=== PATIENT | male | born 1985 | race Caucasian/White ===

== ENCOUNTER 2019-04-28 08:33 | Inpatient (IN) ==
[2019-04-28] MEDS ORDERED: OXYCODONE PO PRN (16:34)
[2019-04-28 16:35] LABS: Basophils # 0.1 K/mcL (0.0-0.2); Basophils % 1.1 %; Eosinophils # 0.5 K/mcL (0.0-0.6); Hematocrit 32.5 % (37.5-50.1); Hemoglobin 10.1 g/dL (12.9-16.9); Immature Granulocytes % 0.3 % (0-4); Lymphocytes # 3.8 K/mcL (0.6-4.6); Lymphocytes % 32.7 %; Mean Corpuscular HGB Conc 31.1 g/dL (31.6-35.5); Mean Corpuscular Hemoglobin 28.7 pg (28.0-33.3); Mean Corpuscular Volume 92.3 fL (83.0-100.0); Mean Platelet Volume 9.8 fL (9.4-12.4); Monocytes # 0.9 K/mcL (0.0-1.3); Monocytes % 7.8 %; Neutrophils # 6.2 K/mcL (1.6-8.9); Platelet Count 1202 K/mcL (140-400); Red Blood Count 3.52 M/mcL (4.19-5.50); Red Cell Distribution Width 14.6 % (11.5-14.5); Segmented Neutrophils % 54.1 %; White Blood Count 11.5 K/mcL (4.3-11.1)
[2019-04-28] MEDS ORDERED: *HR* OxyCODONE Immed Rel 5 MG TABLET PO PRN (16:38)
[2019-04-28] MEDS ORDERED: *HR* OxyCODONE Immed Rel 15 MG TABLET PO PRN (16:39)
[2019-04-28] MEDS: Methocarbamol 500 MG TABLET PO SCH ×2 (17:41→20:58)
[2019-04-28] MEDS: Gabapentin 300 MG CAPSULE PO SCH (20:57)
[2019-04-28] MEDS: *HR* OxyCODONE Immed Rel 15 MG TABLET PO PRN (20:57)
[2019-04-28] MEDS: QUEtiapine Fumarate 25 MG TABLET PO PRN (20:57)
[2019-04-28] MEDS: Melatonin 3 MG TABLET PO PRN (20:57)
[2019-04-28] MEDS: Ciprofloxacin/Dex *EAR* Susp 7.5 ML BOTTLE LEFT EAR SCH (22:44)
[2019-04-29] MEDS: *HR* OxyCODONE Immed Rel 15 MG TABLET PO PRN ×3 (00:56→22:42)
[2019-04-29] MEDS: *HR* Enoxaparin 40 MG/0.4 ML SYRINGE SQ SCH (05:16)
[2019-04-29 06:16] LABS: Basophils # 0.1 K/mcL (0.0-0.2); Basophils % 1.2 %; Eosinophils # 0.5 K/mcL (0.0-0.6); Hematocrit 30.2 % (37.5-50.1); Hemoglobin 9.4 g/dL (12.9-16.9); Immature Granulocytes % 0.4 % (0-4); Lymphocytes # 2.7 K/mcL (0.6-4.6); Lymphocytes % 25.1 %; Mean Corpuscular HGB Conc 31.1 g/dL (31.6-35.5); Mean Corpuscular Hemoglobin 28.6 pg (28.0-33.3); Mean Corpuscular Volume 91.8 fL (83.0-100.0); Mean Platelet Volume 10.6 fL (9.4-12.4); Neutrophils # 6.4 K/mcL (1.6-8.9); Nucleated Red Blood Cells 0.2 /100 WBC (0); Platelet Count 993 K/mcL (140-400); Red Blood Count 3.29 M/mcL (4.19-5.50); Red Cell Distribution Width 14.3 % (11.5-14.5); Segmented Neutrophils % 59.3 %; White Blood Count 10.7 K/mcL (4.3-11.1)
[2019-04-29 06:36] LABS: BUN/Creatinine Ratio 27 (6-26); Blood Urea Nitrogen 13 mg/dL (6-20); Calcium 9.4 mg/dL (8.6-10.3); Carbon Dioxide 26 mEq/L (23-29); Chloride 99 mEq/L (98-107); Glucose 124 mg/dL (70-105); Osmolality,Calculated 278 (280-300); Potassium 3.9 mEq/L (3.5-5.1); Sodium 133 mEq/L (136-145); eGFR For African Americans > 60 (> 60); eGFR For Non-African Americans > 60 (> 60)
[2019-04-29 06:38] LABS: Macrocytosis Present (Not Present); Platelet Estimate Marked Increase (Normal)
[2019-04-29 06:39] LABS: Microcytosis Present (Not Present)
[2019-04-29 06:41] LABS: Spherocytes 1+ (Not Present)
[2019-04-29] MEDS: Multivit/Ca/Min/Fe/FA 1 TAB TABLET PO SCH (08:58)
[2019-04-29] MEDS: Methocarbamol 500 MG TABLET PO SCH ×4 (08:58→22:35)
[2019-04-29] MEDS: Gabapentin 300 MG CAPSULE PO SCH ×3 (08:58→22:35)
[2019-04-29] MEDS: Sennosides/Docusate Sodium TABLET PO SCH (08:58)
[2019-04-29] MEDS: *HR* OxyCODONE Immed Rel 5 MG TABLET PO PRN ×3 (09:33→18:41)
[2019-04-29] MEDS: Ciprofloxacin/Dex *EAR* Susp 7.5 ML BOTTLE LEFT EAR SCH ×2 (09:33→22:35)
[2019-04-29] MEDS: Melatonin 3 MG TABLET PO PRN (22:36)
[2019-04-29] MEDS: QUEtiapine Fumarate 25 MG TABLET PO PRN (22:36)
[2019-04-30] MEDS: *HR* OxyCODONE Immed Rel 15 MG TABLET PO PRN ×5 (02:43→20:19)
[2019-04-30 05:47] LABS: Hematocrit 27.6 % (37.5-50.1); Hemoglobin 8.5 g/dL (12.9-16.9); Mean Corpuscular HGB Conc 30.8 g/dL (31.6-35.5); Mean Corpuscular Hemoglobin 28.6 pg (28.0-33.3); Mean Corpuscular Volume 92.9 fL (83.0-100.0); Mean Platelet Volume 9.3 fL (9.4-12.4); Platelet Count 1213 K/mcL (140-400); Red Blood Count 2.97 M/mcL (4.19-5.50); Red Cell Distribution Width 14.5 % (11.5-14.5); White Blood Count 9.6 K/mcL (4.3-11.1)
[2019-04-30 06:15] LABS: Alanine Aminotransferase 40 Units/L (7-52); Albumin 3.5 g/dL (3.5-5.7); Albumin/Globulin Ratio 0.9 (1.1-2.2); Alkaline Phosphatase 145 Units/L (34-104); Aspartate Amino Transferase 23 Units/L (13-39); BUN/Creatinine Ratio 33 (6-26); Bilirubin,Total 0.6 mg/dL (0.3-1.0); Blood Urea Nitrogen 15 mg/dL (6-20); Calcium 8.9 mg/dL (8.6-10.3); Carbon Dioxide 29 mEq/L (23-29); Chloride 101 mEq/L (98-107); Globulin 3.9 g/dL (2.4-3.5); Glucose 104 mg/dL (70-105); Magnesium 1.9 mg/dL (1.6-2.6); Osmolality,Calculated 283 (280-300); Potassium 3.8 mEq/L (3.5-5.1); Sodium 136 mEq/L (136-145); Total Protein 7.4 g/dL (6.4-8.9); eGFR For African Americans > 60 (> 60); eGFR For Non-African Americans > 60 (> 60)
[2019-04-30] MEDS: *HR* Enoxaparin 40 MG/0.4 ML SYRINGE SQ SCH (06:43)
[2019-04-30] MEDS: Gabapentin 300 MG CAPSULE PO SCH ×3 (09:30→20:19)
[2019-04-30] MEDS: Multivit/Ca/Min/Fe/FA 1 TAB TABLET PO SCH (09:30)
[2019-04-30] MEDS: Sennosides/Docusate Sodium TABLET PO SCH (09:30)
[2019-04-30] MEDS: Methocarbamol 500 MG TABLET PO SCH ×4 (09:30→20:19)
[2019-04-30] MEDS: Ciprofloxacin/Dex *EAR* Susp 7.5 ML BOTTLE LEFT EAR SCH ×2 (11:00→20:20)
[2019-04-30] MEDS: QUEtiapine Fumarate 25 MG TABLET PO PRN (20:19)
[2019-04-30] MEDS: Melatonin 3 MG TABLET PO PRN (20:19)
[2019-05-01] MEDS: *HR* OxyCODONE Immed Rel 15 MG TABLET PO PRN ×6 (00:22→20:50)
[2019-05-01] MEDS: *HR* Enoxaparin 40 MG/0.4 ML SYRINGE SQ SCH (04:23)
[2019-05-01 06:11] LABS: Basophils # 0.2 K/mcL (0.0-0.2); Basophils % 1.9 %; Eosinophils # 0.8 K/mcL (0.0-0.6); Eosinophils % 7.5 %; Hematocrit 28.3 % (37.5-50.1); Hemoglobin 8.8 g/dL (12.9-16.9); Immature Granulocytes % 0.4 % (0-4); Lymphocytes # 3.1 K/mcL (0.6-4.6); Lymphocytes % 29.9 %; Mean Corpuscular HGB Conc 31.1 g/dL (31.6-35.5); Mean Corpuscular Hemoglobin 29.1 pg (28.0-33.3); Mean Corpuscular Volume 93.7 fL (83.0-100.0); Mean Platelet Volume 9.1 fL (9.4-12.4); Monocytes # 1.2 K/mcL (0.0-1.3); Monocytes % 11.5 %; Neutrophils # 5.1 K/mcL (1.6-8.9); Platelet Count 1234 K/mcL (140-400); Red Blood Count 3.02 M/mcL (4.19-5.50); Red Cell Distribution Width 14.7 % (11.5-14.5); Segmented Neutrophils % 48.8 %; White Blood Count 10.5 K/mcL (4.3-11.1)
[2019-05-01] MEDS: Gabapentin 300 MG CAPSULE PO SCH ×3 (08:15→20:51)
[2019-05-01] MEDS: Multivit/Ca/Min/Fe/FA 1 TAB TABLET PO SCH (08:15)
[2019-05-01] MEDS: Ciprofloxacin/Dex *EAR* Susp 7.5 ML BOTTLE LEFT EAR SCH ×2 (08:16→20:51)
[2019-05-01] MEDS: Sennosides/Docusate Sodium TABLET PO SCH (08:16)
[2019-05-01] MEDS: Methocarbamol 500 MG TABLET PO SCH ×4 (08:16→20:51)
[2019-05-01] MEDS: QUEtiapine Fumarate 25 MG TABLET PO PRN (20:51)
[2019-05-01] MEDS: Melatonin 3 MG TABLET PO PRN (20:51)
[2019-05-02] MEDS: *HR* OxyCODONE Immed Rel 15 MG TABLET PO PRN ×6 (01:13→22:39)
[2019-05-02] MEDS: *HR* Enoxaparin 40 MG/0.4 ML SYRINGE SQ SCH (05:28)
[2019-05-02 05:41] LABS: Basophils # 0.2 K/mcL (0.0-0.2); Eosinophils # 0.8 K/mcL (0.0-0.6); Eosinophils % 8.4 %; Hematocrit 31.2 % (37.5-50.1); Hemoglobin 9.5 g/dL (12.9-16.9); Immature Granulocytes % 0.3 % (0-4); Lymphocytes # 2.5 K/mcL (0.6-4.6); Lymphocytes % 24.8 %; Mean Corpuscular HGB Conc 30.4 g/dL (31.6-35.5); Mean Corpuscular Volume 95.1 fL (83.0-100.0); Mean Platelet Volume 9.2 fL (9.4-12.4); Monocytes # 1.1 K/mcL (0.0-1.3); Monocytes % 11.4 %; Neutrophils # 5.3 K/mcL (1.6-8.9); Platelet Count 1238 K/mcL (140-400); Red Blood Count 3.28 M/mcL (4.19-5.50); Red Cell Distribution Width 15.4 % (11.5-14.5); Segmented Neutrophils % 53.1 %
[2019-05-02 06:00] LABS: BUN/Creatinine Ratio 27 (6-26); Blood Urea Nitrogen 14 mg/dL (6-20); Calcium 9.3 mg/dL (8.6-10.3); Carbon Dioxide 32 mEq/L (23-29); Chloride 101 mEq/L (98-107); Glucose 98 mg/dL (70-105); Osmolality,Calculated 284 (280-300); Potassium 3.9 mEq/L (3.5-5.1); Sodium 137 mEq/L (136-145); eGFR For African Americans > 60 (> 60); eGFR For Non-African Americans > 60 (> 60)
[2019-05-02] MEDS: Ciprofloxacin/Dex *EAR* Susp 7.5 ML BOTTLE LEFT EAR SCH ×2 (08:37→20:52)
[2019-05-02] MEDS: Gabapentin 300 MG CAPSULE PO SCH ×3 (08:38→20:51)
[2019-05-02] MEDS: Methocarbamol 500 MG TABLET PO SCH ×4 (08:38→20:51)
[2019-05-02] MEDS: Sennosides/Docusate Sodium TABLET PO SCH (08:38)
[2019-05-02] MEDS: Multivit/Ca/Min/Fe/FA 1 TAB TABLET PO SCH (08:38)
[2019-05-02] MEDS: QUEtiapine Fumarate 25 MG TABLET PO PRN (20:51)
[2019-05-02] MEDS: Melatonin 3 MG TABLET PO PRN (20:51)
[2019-05-03] MEDS: *HR* OxyCODONE Immed Rel 15 MG TABLET PO PRN ×5 (02:38→21:00)
[2019-05-03] MEDS: *HR* Enoxaparin 40 MG/0.4 ML SYRINGE SQ SCH (06:41)
[2019-05-03] MEDS: Multivit/Ca/Min/Fe/FA 1 TAB TABLET PO SCH (10:09)
[2019-05-03] MEDS: Gabapentin 300 MG CAPSULE PO SCH ×3 (10:09→20:59)
[2019-05-03] MEDS: Methocarbamol 500 MG TABLET PO SCH ×4 (10:09→20:59)
[2019-05-03] MEDS: Sennosides/Docusate Sodium TABLET PO SCH (10:09)
[2019-05-03] MEDS: Ciprofloxacin/Dex *EAR* Susp 7.5 ML BOTTLE LEFT EAR SCH ×2 (11:23→21:00)
[2019-05-03] MEDS: QUEtiapine Fumarate 25 MG TABLET PO PRN (21:00)
[2019-05-03] MEDS: Melatonin 3 MG TABLET PO PRN (21:00)
[2019-05-04] MEDS: *HR* OxyCODONE Immed Rel 15 MG TABLET PO PRN ×6 (01:50→23:47)
[2019-05-04 05:26] LABS: Basophils # 0.2 K/mcL (0.0-0.2); Basophils % 1.8 %; Eosinophils % 8.7 %; Hematocrit 31.8 % (37.5-50.1); Hemoglobin 9.6 g/dL (12.9-16.9); Immature Granulocytes % 0.4 % (0-4); Lymphocytes # 3.1 K/mcL (0.6-4.6); Lymphocytes % 27.4 %; Mean Corpuscular HGB Conc 30.2 g/dL (31.6-35.5); Mean Corpuscular Hemoglobin 29.3 pg (28.0-33.3); Mean Platelet Volume 9.1 fL (9.4-12.4); Monocytes # 1.3 K/mcL (0.0-1.3); Monocytes % 11.5 %; Neutrophils # 5.7 K/mcL (1.6-8.9); Nucleated Red Blood Cells 0.2 /100 WBC (0); Platelet Count 1102 K/mcL (140-400); Red Blood Count 3.28 M/mcL (4.19-5.50); Red Cell Distribution Width 15.9 % (11.5-14.5); Segmented Neutrophils % 50.2 %; White Blood Count 11.3 K/mcL (4.3-11.1)
[2019-05-04 05:40] LABS: BUN/Creatinine Ratio 24 (6-26); Blood Urea Nitrogen 14 mg/dL (6-20); Calcium 9.2 mg/dL (8.6-10.3); Carbon Dioxide 31 mEq/L (23-29); Chloride 100 mEq/L (98-107); Glucose 115 mg/dL (70-105); Osmolality,Calculated 283 (280-300); Potassium 3.5 mEq/L (3.5-5.1); Sodium 136 mEq/L (136-145); eGFR For African Americans > 60 (> 60); eGFR For Non-African Americans > 60 (> 60)
[2019-05-04] MEDS: *HR* Enoxaparin 40 MG/0.4 ML SYRINGE SQ SCH (06:30)
[2019-05-04 08:24] LABS: Platelet Estimate Marked Increase (Normal)
[2019-05-04] MEDS: Ciprofloxacin/Dex *EAR* Susp 7.5 ML BOTTLE LEFT EAR SCH ×2 (08:49→19:28)
[2019-05-04] MEDS: Sennosides/Docusate Sodium TABLET PO SCH (08:50)
[2019-05-04] MEDS: Methocarbamol 500 MG TABLET PO SCH ×4 (08:50→19:33)
[2019-05-04] MEDS: Multivit/Ca/Min/Fe/FA 1 TAB TABLET PO SCH (08:50)
[2019-05-04] MEDS: Gabapentin 300 MG CAPSULE PO SCH ×3 (08:50→19:28)
[2019-05-04] MEDS: Melatonin 3 MG TABLET PO PRN (19:28)
[2019-05-04] MEDS: QUEtiapine Fumarate 25 MG TABLET PO PRN (19:28)
[2019-05-05] MEDS: *HR* Enoxaparin 40 MG/0.4 ML SYRINGE SQ SCH (03:47)
[2019-05-05] MEDS: *HR* OxyCODONE Immed Rel 15 MG TABLET PO PRN ×2 (03:47→08:05)
[2019-05-05 07:16] VITALS: BP 124/74
[2019-05-05] MEDS: Methocarbamol 500 MG TABLET PO SCH (08:04)
[2019-05-05] MEDS: Gabapentin 300 MG CAPSULE PO SCH (08:04)
[2019-05-05] MEDS: Multivit/Ca/Min/Fe/FA 1 TAB TABLET PO SCH (08:04)
[2019-05-05] MEDS: Ciprofloxacin/Dex *EAR* Susp 7.5 ML BOTTLE LEFT EAR SCH (08:05)
[2019-05-05] MEDS: Sennosides/Docusate Sodium TABLET PO SCH (08:05)
== END 2019-05-05 11:37 | disposition home or self-care (01) | DRG 945 ==
LOC: INPGRE 14:49
PROVIDERS: ADMIT Family Medicine; ATTEND Family Medicine